=== PATIENT | female | born 1985 | race Caucasian/White ===

== ENCOUNTER 2016-08-15 09:53 | Emergency (ER) | payer SELFPAY ==
--- NOTE | 2016-08-17 11:05 | NUR ---
Received SAD person referral. Pt scored one on the SAD person scale. Called and spoke with pt. Pt states she was able to [employer] and afford her medications that were prescribed to her in the ER. Pt states she goes to [facility] and is on anti-depressant medications. Pt states she has an appt with her counselor scheduled. Pt denies current thoughts of self harm. Pt states she goes to [facility]. Deny any other needs at this time.
--- NOTE | 2016-08-26 10:05 | ER ---
ADMIT: 08/15/2016 RM/LOC: ER [facility] MR#: [id number] [address] [id number] MALKA NIEVES [address] [place] [address] Emergency Room Report SEX: F AGE: 31 : 1985 DATE: 08/15/2016 ADDENDUM: CHIEF COMPLAINT: Cough, nausea, vomiting, diarrhea. HISTORY OF PRESENT ILLNESS: This is a 31-year-old, who developed a cough about a week ago. She has had fevers intermittently; this morning, she said it was as high as 102, but did not take any Motrin or Tylenol. Upon arrival, her temp is 99.5. She is coughing in the room. She said she has been having diarrhea all week and the last time she vomited was yesterday. I told her at this time it just seems more viral. Told her to continue to push fluids. Take Tylenol or Motrin for fever. I am prescribing her Phenergan with codeine for nausea and cough. I told her I would also give her some Zofran if her nausea is not improved with tje Phenergan. CLINICAL IMPRESSION: Viral syndrome. DISPOSITION: Stable at discharge, will follow up with her primary care physician if worsen. JOSE ARMANDO [employer] / Roger Ragsdale MD / rosal JOB #: [id number] CC: Roger Ragsdale MD, Attending Physician
== END 2016-08-15 10:42 | disposition home or self-care (01) ==
LOC: ER 09:53
DX: B34.9 Viral infection, unspecified (principal); F31.9 Bipolar disorder, unspecified; F41.9 Anxiety disorder, unspecified; Z88.8 Allergy status to other drugs, medicaments and biological substances; Z79.899 Other long term (current) drug therapy